=== PATIENT | female | born 1965 | race Caucasian/White ===

== ENCOUNTER → 2017-09-21 | Outpatient (CLI) | payer OTHER ==
[2017-09-22 01:26] LABS: Rheumatoid Factor 7 IU/mL (0-15)
[2017-09-22 01:40] LABS: Cyclic Citrullinated Pep IgG NEGATIVE (NEGATIVE)
[2017-09-22 11:02] LABS: HLA B27 NEGATIVE
== END | disposition home or self-care (01) ==
LOC: LABWHC1 17:06
PROVIDERS: ATTEND Orthopaedic Surgery Hand Surgery
DX: M25.531 Pain in right wrist (principal)
CPT/HCPCS: 36415; 84550; 86038; 86200; 86431; 86812

== ENCOUNTER 2023-09-05 16:50 | Emergency (ER) | payer OTHER ==
[2023-09-05 17:35] LABS: Basophils % (A) 0 %; Eosinophils # (A) 0.1 k/uL (0-0.7); Eosinophils % (A) 1 %; HCT 36.5 % (34.0-46.0); HGB 12.6 gm/dL (11.4-16.0); Lymphocytes % (A) 25 %; MCH 31.5 pg (25.0-35.0); MCHC 34.5 g/dL (31.0-37.0); MCV 91.4 fL (80.0-100.0); Mean Platelet Volume 7.7; Monocytes # (A) 0.3 k/uL (0-1.0); Monocytes % (A) 4 %; Neutrophils # (A) 5.5 k/uL (1.3-7.7); Neutrophils % (A) 69 %; Platelet Count 229 k/uL (150-450); RDW 13.1 % (11.5-15.5)
[2023-09-05] MEDS: SODIUM CHLORIDE 0.9% 500 ML 500 ML IV STA (17:41)
[2023-09-05 17:43] LABS: ALT 11 U/L (4-34); AST 20 U/L (14-36); African American GFR (CKD) >90 (>60 ml/min/1.73 sqM); Alkaline Phosphatase 89 U/L (38-126); Anion Gap 8 mmol/L; Blood Urea Nitrogen 13 mg/dL (7-17); Calcium 8.9 mg/dL (8.4-10.2); Carbon Dioxide 21 mmol/L (22-30); Chloride 109 mmol/L (98-107); Glucose 111 mg/dL (74-99); Non-African American GFR(CKD) >90 (>60 ml/min/1.73 sqM); Potassium 4.1 mmol/L (3.5-5.1); Sodium 138 mmol/L (137-145); Total Bilirubin 0.4 mg/dL (0.2-1.3); Total Protein 6.9 g/dL (6.3-8.2)
[2023-09-05 17:47] LABS: INR 0.9 (<1.2); Partial Thromboplastin Time 25.6 sec (22.0-30.0)
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
[2023-09-05] MEDS: LIDOCAINE 4% PATCH TOPICAL STA (18:40)
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
[2023-09-05 18:59] VITALS: TEMP 98.4
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
[2023-09-05] MEDS: IBUPROFEN 800 MG TAB PO STA (19:49)
[2023-09-05 20:13] VITALS: BP 164/73; PULSE 81; RESP 16
== END 2023-09-05 19:52 | disposition home or self-care (01) ==
LOC: EC 16:50
DX: S13.9XXA Sprain of joints and ligaments of unspecified parts of neck, initial encounter (principal); S27.321A Contusion of lung, unilateral, initial encounter; F17.200 Nicotine dependence, unspecified, uncomplicated; Z88.1 Allergy status to other antibiotic agents; V49.40XA Driver injured in collision with unspecified motor vehicles in traffic accident, initial encounter
CPT/HCPCS: 36415; 70450; 71045; 72125; 72170; 80053; 85025; 85610; 85730; 96360; 96361; 99285